=== PATIENT | female | born 1955 | race Caucasian/White ===

== ENCOUNTER 2019-08-20 09:27 | Emergency (ER) | payer BC ==
[2019-08-20] MEDS ORDERED: LIDOCAINE 1% W/EPI 1:100,000 MDV 20 ML VIAL ONE (10:10)
--- NOTE | 2019-08-20 10:14 | ER ---
Nurse's Notes [facility] Name: Rahel Emanuel Age: 63 yrs Sex: Female : 1955 Arrival Date: 08/20/2019 Time: 09:30 Bed 5 Private MD: Diagnosis: Cutaneous abscess of right lower limb Presentation: 08/20 09:40 Presenting complaint: Patient states: R POSTERIOR SUPERIOR THIGH ABSCESS x4 DAYS. bp Transition of care: patient was not received from another setting of care. Onset of symptoms is unknown. Risk Assessment: Do you want to hurt yourself or someone else? Patient reports no desire to harm self or others. Initial Sepsis Screen: Does the patient meet any 2 criteria? No. Patient's initial sepsis screen is negative. Does the patient have a suspected source of infection? No. Patient's initial sepsis screen is negative. Care prior to arrival: None. 09:40 Method Of Arrival: Ambulatory bp 09:40 Acuity: PAMELA 3 bp Historical: - Allergies: 09:42 Iodine; bp 09:42 PENICILLINS; bp - Home Meds: 09:42 Tramadol Oral [Active]; bp - PMHx: 09:42 Migraines; bp - Immunization history:: Adult Immunizations up to date, Last tetanus immunization: unknown. - Social history:: Smoking status: Patient/guardian denies using tobacco. - Ebola Screening: : No symptoms or risks identified at this time. - Family history:: not pertinent. Screenin:00 Abuse screen: Denies threats or abuse. Denies injuries from another. Nutritional jl7 screening: No deficits noted. Tuberculosis screening: No symptoms or risk factors identified. Fall Risk None identified. Assessment: 10:00 General: Appears in no apparent distress. uncomfortable, Behavior is calm, cooperative, jl7 appropriate for age. Pain: Complains of pain in right hamstring. Neuro: Level of Consciousness is awake, alert, obeys commands, Oriented to person, place, time, situation. Cardiovascular: Patient's skin is warm and dry. Respiratory: Airway is patent Respiratory effort is even, unlabored, Respiratory pattern is regular, symmetrical. GI: No signs and/or symptoms were reported involving the gastrointestinal system. : No signs and/or symptoms were reported regarding the genitourinary system. EENT: No signs and/or symptoms were reported regarding the EENT system. Derm: Skin is pink, warm \T\ dry. Abscess located on right hamstring is half dollar sized, is red, is raised. 10:14 Reassessment: Pt will be discharged once I\T\D is done. jl7 Vital Signs: 09:42 BP 128 / 85; Pulse 89; Resp 16; Temp 97.5; Pulse Ox 97% ; Weight 68.04 kg; Height 5 ft. bp 4 in. (162.56 cm); 09:42 Body Mass Index 25.75 (68.04 kg, 162.56 cm) bp ED Course: 09:30 Patient arrived in ED. rg4 09:41 Triage completed. bp 09:42 Kevin Remy MD is Attending Physician. pranay 09:42 Arm band placed on left wrist. bp 09:43 Celso Wang, RN is Primary Nurse. sg 10:00 Patient has correct armband on for positive identification. Placed in gown. Bed in low jl7 position. Call light in reach. Side rails up X 1. Pulse ox on. NIBP on. 10:47 Assist provider with I \T\ D: of an abscess on right hamstring area Set up I\T\D tray. jl 7 Performed by Kevin Remy MD Culture sent to lab. Wound packed. Dressing with 4X4s, tape Patient tolerated well. Patient did not have IV access during this emergency room visit. Administered Medications: 10:19 Drug: Doxycycline 200 mg Route: PO; jl7 10:44 Follow up: Response: No adverse reaction jl7 10:19 Drug: Bactrim (160 mg-800 mg (DS) 1 tablet Route: PO; jl7 10:44 Follow up: Response: No adverse reaction jl7 10:44 Drug: Lidocaine-Epinephrine -1%: (1:100,000) 10 ml {Note: administered by Dr. rosey Remy.} Volume: 20 ml; Route: Infiltration; Point of Care Testing: Blood Glucose: 10:29 Blood Glucose: 101 mg/dL; sg Ranges: Outcome: 10:13 Discharge ordered by . pranay 10:59 Patient left the ED. bd Addendum: 08/23/2019 08:07 Addendum: Culture Results: Positive wound culture. No further action required. Bacteria s s sensitive to prescribed antibiotic. Signatures: Estela Deluna Steven RN RN Kevin Sands MD MD cha Smirch, Shelby, RN RN ss Sadia Bansal4 Marcio Rahman RN RN jl7 Petr Dacosta RN RN bp
--- NOTE | 2019-08-20 10:14 | EDPHYS ---
Physician Documentation [facility] Name: Rahel Emanuel Age: 63 yrs Sex: Female : 1955 Arrival Date: 08/20/2019 Time: 09:30 Bed 5 Private MD: ED Physician Kevin Remy HPI: 08/20 10:08 This 63 yrs old Female presents to ER via Ambulatory with complaints of pranay Abscess. 10:08 The patient presents with an abscess of the right hamstring. Description: The affected pranay area is moderate sized, localized, draining, erythematous, fluctuant. Onset: The symptoms/episode began/occurred 3 day(s) ago. Possible cause(s): unknown. Associated signs and symptoms: The patient has no apparent associated signs or symptoms. Modifying factors: the symptoms are alleviated by nothing, the symptoms are aggravated by nothing. Severity of symptoms: At their worst the symptoms were mild, in the emergency department the symptoms are unchanged. Historical: - Allergies: 09:42 Iodine; bp 09:42 PENICILLINS; bp - Home Meds: 09:42 Tramadol Oral [Active]; bp - PMHx: 09:42 Migraines; bp - Immunization history:: Adult Immunizations up to date, Last tetanus immunization: unknown. - Social history:: Smoking status: Patient/guardian denies using tobacco. - Ebola Screening: : No symptoms or risks identified at this time. - Family history:: not pertinent. ROS: 10:08 Constitutional: Negative for fever, chills, and weight loss, Eyes: Negative for injury, pranay pain, redness, and discharge, ENT: Negative for injury, pain, and discharge, Neck: Negative for injury, pain, and swelling, Cardiovascular: Negative for chest pain, palpitations, and edema, Respiratory: Negative for shortness of breath, cough, wheezing, and pleuritic chest pain, Abdomen/GI: Negative for abdominal pain, nausea, vomiting, diarrhea, and constipation, Back: Negative for injury and pain, : Negative for injury, bleeding, discharge, and swelling, Skin: Negative for injury, rash, and discoloration, Neuro: Negative for headache, weakness, numbness, tingling, and seizure, Psych: Negative for depression, anxiety, suicide ideation, homicidal ideation, and hallucinations, Allergy/Immunology: Negative for hives, rash, and allergies, Endocrine: Negative for neck swelling, polydipsia, polyuria, polyphagia, and marked weight changes, Hematologic/Lymphatic: Negative for swollen nodes, abnormal bleeding, and unusual bruising. 10:08 MS/extremity: Positive for pain, swelling, tenderness, of the right hamstring. Exam: 10:08 Constitutional: This is a well developed, well nourished patient who is awake, alert, pranay and in no acute distress. Head/Face: Normocephalic, atraumatic. Eyes: Pupils equal round and reactive to light, extra-ocular motions intact. Lids and lashes normal. Conjunctiva and sclera are non-icteric and not injected. Cornea within normal limits. Periorbital areas with no swelling, redness, or edema. ENT: Nares patent. No nasal discharge, no septal abnormalities noted. Tympanic membranes are normal and external auditory canals are clear. Oropharynx with no redness, swelling, or masses, exudates, or evidence of obstruction, uvula midline. Mucous membranes moist. Neck: Trachea midline, no thyromegaly or masses palpated, and no cervical lymphadenopathy. Supple, full range of motion without nuchal rigidity, or vertebral point tenderness. No Meningismus. Chest/axilla: Normal chest wall appearance and motion. Nontender with no deformity. No lesions are appreciated. Cardiovascular: Regular rate and rhythm with a normal S1 and S2. No gallops, murmurs, or rubs. Normal PMI, no JVD. No pulse deficits. Respiratory: Lungs have equal breath sounds bilaterally, clear to auscultation and percussion. No rales, rhonchi or wheezes noted. No increased work of breathing, no retractions or nasal flaring. Abdomen/GI: Soft, non-tender, with normal bowel sounds. No distension or tympany. No guarding or rebound. No evidence of tenderness throughout. Back: No spinal tenderness. No costovertebral tenderness. Full range of motion. Neuro: Awake and alert, GCS 15, oriented to person, place, time, and situation. Cranial nerves II-XII grossly intact. Motor strength 5/5 in all extremities. Sensory grossly intact. Cerebellar exam normal. Normal gait. Psych: Awake, alert, with orientation to person, place and time. Behavior, mood, and affect are within normal limits. 10:08 Skin: abscess, that is moderate sized, of the right hamstring, cellulitis, that is minimal. Vital Signs: 09:42 BP 128 / 85; Pulse 89; Resp 16; Temp 97.5; Pulse Ox 97% ; Weight 68.04 kg; Height 5 ft. bp 4 in. (162.56 cm); 09:42 Body Mass Index 25.75 (68.04 kg, 162.56 cm) bp MDM: 09:43 Patient medically screened. [facility] 08/20 10:12 Order name: Wound Culture [facility] 08/20 10:31 Order name: Glucose, Ancillary Testing [facility] 08/20 10:08 Order name: Blood Glucose Level; Complete Time: 10:29 [facility] 08/20 10:08 Order name: Gloves, Sterile; Complete Time: 10:12 [facility] 08/20 10:08 Order name: Setup Suture Tray; Complete Time: 10:14 [facility] Administered Medications: 10:19 Drug: Doxycycline 200 mg Route: PO; [facility] 10:44 Follow up: Response: No adverse reaction [facility] 10:19 Drug: Bactrim (160 mg-800 mg (DS) 1 tablet Route: PO; [facility] 10:44 Follow up: Response: No adverse reaction [facility] 10:44 Drug: Lidocaine-Epinephrine -1%: (1:100,000) 10 ml {Note: administered by Dr. rosey Remy.} Volume: 20 ml; Route: Infiltration; Point of Care Testing: Blood Glucose: 10: Blood Glucose: 101 mg/dL; sg Ranges: Critical Glucose Levels:Adult <50 mg/dl or >400 mg/dl <40 mg/dl or >180 mg/dl Disposition: 08/20/19 10:13 Discharged to Home. Impression: Cutaneous abscess of right lower limb. - Condition is Stable. - Discharge Instructions: Skin Abscess, Incision and Drainage, Skin Abscess, [id number], Incision and Drainage, Care After. - Prescriptions for Bactroban 2 % Topical Ointment - Apply to affected area 1 application by TOPICAL route every 12 hours; 45 gram. Tylenol- Codeine #3 300-30 mg Oral Tablet - take 2 tablet by ORAL route every 6 hours As needed; 30 tablet. Doxycycline Hyclate 100 mg Oral Tablet - take 1 tablet by ORAL route every 12 hours; 20 tablet. Bactrim DS 800- 160 mg Oral Tablet - take 1 tablet by ORAL route every 12 hours for 10 days; 20 tablet. - Medication Reconciliation Form, Thank You Letter, Antibiotic Education, Prescription Opioid Use form. - Follow up: Private Physician; When: 2 - 3 days; Reason: Recheck today's complaints, Continuance of care, Re-evaluation by your physician. - Problem is new. - Symptoms have improved. Signatures: Dispatcher [employer] EDMS RegiEstela Kevin Herrera MD MD cha Leal, Jahala RN RN jl7 Petr Dacosta RN RN bp Corrections: (The following items were deleted from the chart) 10:59 10:13 08/20/2019 10:13 Discharged to Home. Impression: Cutaneous abscess of right lower bd limb. Condition is Stable. Forms are Medication Reconciliation Form, Thank You Letter, Antibiotic Education, Prescription Opioid Use. Follow up: Private Physician; When: 2 - 3 days; Reason: Recheck today's complaints, Continuance of care, Re-evaluation by your physician. Problem is new. Symptoms have improved. pranay
[2019-08-20] MEDS ORDERED: DOXYCYCLINE 100 MG CAP PO ONE (10:18)
[2019-08-20] MEDS ORDERED: SMZ./TMP. 800/160 MG TABLET ONE (10:18)
[2019-08-20 11:06] VITALS: BP 128/85; TEMP 97.5; O2SAT 97
== END 2019-08-20 10:59 | disposition home or self-care (01) ==
LOC: ER 09:27
DX: L02.415 Cutaneous abscess of right lower limb (principal); Z88.0 Allergy status to penicillin; Z91.048 Other nonmedicinal substance allergy status
CPT/HCPCS: 82962; 87070; 87077; 87186; 87205; 99284